=== PATIENT | female | born 1935 | race Caucasian/White ===

== ENCOUNTER 2018-07-14 21:51 | Emergency (ER) | payer MEDICARE, BC ==
[2018-07-14] MEDS ORDERED: Ketorolac 30 MG/ML SDV IM ONE (23:17)
[2018-07-15] MEDS ORDERED: Gabapentin 300 MG Cap PO ONE (00:07)
--- NOTE | 2018-07-15 00:31 | EDM.PDOC ---
ED HPI GENERAL MEDICAL PROBLEM - General Chief Complaint: Upper Extremity Injury/Pain Stated Complaint: LEG PAIN [id number] Time Seen by Provider: 07/15/18 00:31 Source of Information: Reports: Patient History Limitations: Reports: No Limitations - History of Present Illness INITIAL COMMENTS - FREE TEXT/NARRATIVE: h/o herniated disk with sciatica. Right Leg Pain Score (Numeric/FACES): 10 - Related Data Allergies Allergy/AdvReac Type Severity Reaction Status Date / Time latex Allergy Anaphylactic Verified 07/14/18 22:35 Shock Home Meds: Home Meds Albuterol [Proventil HFA] 2 puff INH ASDIRECTED 07/14/18 [History] Fenofibrate 40 mg PO DAILY 07/14/18 [History] Omeprazole 20 mg PO DAILY 07/14/18 [History] Past Medical History HEENT History: Reports: Cataract Respiratory History: Reports: Asthma Gastrointestinal History: Reports: GERD Genitourinary History: Reports: UTI, Recurrent, Other (See Below) Other Genitourinary History: Has some incontance. Musculoskeletal History: Reports: Arthritis, Back Pain, Chronic, Osteoarthritis , Osteoporosis, RA Hematologic History: Reports: Anemia, Other (See Below) Other Hematologic History: Has had severe nose bleeds. - Past Surgical History HEENT Surgical History: Reports: Cataract Surgery, Other (See Below) Other HEENT Surgeries/Procedures: wet macular deg. Musculoskeletal Surgical History: Reports: Other (See Below) Other Musculoskeletal Surgeries/Procedures:: left wrist Rt. foot and ankle. Social & Family History - Family History Family Medical History: Noncontributory - Tobacco Use Smoking Status *Q: Never Smoker Second Hand Smoke Exposure: No - Caffeine Use Caffeine Use: Reports: None - Recreational Drug Use Recreational Drug Use: No Review of Systems - Review of Systems Review Of Systems: ROS reveals no pertinent complaints other than HPI. ED EXAM, GENERAL - Physical Exam Exam: See Below Exam Limited By: No Limitations General Appearance: Alert, WD/WN, Mild Distress Ears: Hearing Grossly Normal Throat/Mouth: Normal Voice, No Airway Compromise Head: Atraumatic Neck: Non-Tender, Full Range of Motion Respiratory/Chest: No Respiratory Distress Cardiovascular: Regular Rate, Rhythm GI/Abdominal: Soft, Non-Tender Back Exam: Muscle Spasm, Paraspinal Tenderness, Other (sciatica) Neurological: Alert, Normal Cognition, No Motor/Sensory Deficits Psychiatric: Tearful Skin Exam: Warm, Dry, Normal Color Lymphatic: No Adenopathy Course - Vital Signs Last Recorded V/S: Last Vital Signs Temp 36.7 C 07/14/18 22:20 Pulse 80 07/14/18 22:20 Resp 18 07/14/18 22:20 BP 155/85 H 07/14/18 22:20 Pulse Ox 95 07/14/18 22:20 - Orders/Labs/Meds Labs: Laboratory Tests 07/14/18 Range/Units 22:30 Urine Color Yellow (YELLOW) Urine Appearance Slightly cloudy (CLEAR) Urine pH 7.0 (5.0-9.0) Ur Specific [place] 1.010 (1.005-1.030) Urine Protein Negative (NEGATIVE) Urine Glucose (UA) Negative (NEGATIVE) Urine Ketones Negative (NEGATIVE) Urine Occult Blood Trace-intact H (NEGATIVE) Urine Nitrite Negative (NEGATIVE) Urine Bilirubin Negative (NEGATIVE) Urine Urobilinogen 0.2 (0.2-1.0) mg/dL Ur Leukocyte Esterase Trace H (NEGATIVE) Urine RBC 0-5 /HPF Urine WBC 0-5 (0-5/HPF) /HPF Ur Epithelial Cells Moderate H /HPF Urine Bacteria Few (0-FEW/HPF) /HPF Meds: Medications Discontinued Medications Generic Name Dose Route Start Last Admin Trade Name Roelq PRN Reason Stop Dose Admin Gabapentin 300 mg 07/15/18 00:07 07/15/18 00:17 Neurontin PO 07/15/18 00:08 300 mg ONETIME ONE Administration Ketorolac Tromethamine 30 mg 07/14/18 23:17 07/14/18 23:40 Toradol IM 07/14/18 23:18 30 mg ONETIME ONE Administration Departure - Departure Time of Disposition: 00:34 Disposition: Home, Self-Care 01 Condition: Good Clinical Impression: 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
== END 2018-07-15 00:50 | disposition home or self-care (01) ==
LOC: DL.ED 21:51
DX: M51.17 Intervertebral disc disorders with radiculopathy, lumbosacral region (principal); Z91.040 Latex allergy status; Z79.899 Other long term (current) drug therapy
CPT/HCPCS: 81001; 96372; 99283; A9270; J1885